=== PATIENT | male | born 1995 | race Caucasian/White ===

== ENCOUNTER 2022-04-11 11:35 | Emergency (ER) | payer OTHER ==
[~2022-04-11] VITALS: Ht 185.4 cm; Wt 79.5 kg
[2022-04-11 11:53] VITALS: TEMP 98.1
[2022-04-11] MEDS ORDERED: FLEXERIL 1010 MG/TAB PO (13:10)
[2022-04-11 13:26] VITALS: BP 116/75; PULSE 59
== END 2022-04-11 13:26 | disposition home or self-care (01) ==
LOC: COL.ER 11:35
DX: M54.2 Cervicalgia (principal); G89.29 Other chronic pain; F17.200 Nicotine dependence, unspecified, uncomplicated
CPT/HCPCS: J1885